=== PATIENT | female | born 1980 | race Caucasian/White ===

== ENCOUNTER 2025-01-07 06:30 | Outpatient (RCR) | payer MEDICARE, MEDICAID, SELFPAY | END 2025-02-06 23:59 | disposition home or self-care (01) | LOC: WPT 06:30 | PROVIDERS: Visit Provider Orthopaedic Surgery | DX: M54.12 Radiculopathy, cervical region (principal); M25.511 Pain in right shoulder | CPT/HCPCS: 97162 ==

== ENCOUNTER → 2025-02-20 10:45 | Outpatient (BNVA) | payer MEDICARE, MEDICAID, SELFPAY | PROVIDERS: Visit Provider Nurse Practitioner Family | DX: M54.42 Lumbago with sciatica, left side (principal); M54.41 Lumbago with sciatica, right side; G89.29 Other chronic pain; M54.2 Cervicalgia | CPT/HCPCS: 99214 ==

== ENCOUNTER → 2025-02-27 13:11 | Outpatient (BNVA) | payer MEDICARE, MEDICAID, SELFPAY | PROVIDERS: Visit Provider Nurse Practitioner Family | DX: M79.18 Myalgia, other site (principal); M54.42 Lumbago with sciatica, left side; M54.41 Lumbago with sciatica, right side; G89.29 Other chronic pain; M54.2 Cervicalgia | CPT/HCPCS: 20553; 99214; J1010; J3490 ==

== ENCOUNTER → 2025-03-13 10:52 | Outpatient (BNVA) | payer MEDICARE, MEDICAID, SELFPAY | PROVIDERS: Visit Provider Nurse Practitioner Family | DX: M54.42 Lumbago with sciatica, left side (principal); M54.41 Lumbago with sciatica, right side; G89.29 Other chronic pain; M54.2 Cervicalgia | CPT/HCPCS: 99213 ==

== ENCOUNTER → 2025-03-21 07:53 | Outpatient (BNVA) | payer MEDICARE, SELFPAY | PROVIDERS: Visit Provider Orthopaedic Surgery | DX: Z76.89 Persons encountering health services in other specified circumstances (principal); M54.9 Dorsalgia, unspecified; M54.42 Lumbago with sciatica, left side; M54.41 Lumbago with sciatica, right side; G89.29 Other chronic pain | CPT/HCPCS: 72110; 99203 ==

== ENCOUNTER 2025-03-29 10:45 | Outpatient (CLI) | payer MEDICARE, MEDICAID, SELFPAY ==
--- NOTE | 2025-03-29 11:45 | MR_ITS ---
WS: [id number] MRI LUMBAR SPINE NONCONTRAST HISTORY: Back Pain COMPARISON: Radiograph 03/21/2025 TECHNIQUE: Sagittal and axial multisequence imaging is submitted. L3 anterolisthesis by 3 mm. The remaining vertebral bodies are normally aligned. Advanced degenerative disc disease at L3-4, L4-5 and L5-S1. No acute marrow edema or fracture. Conus terminates normally at L1-2 disc level. L1-L2: Mild annular disc bulging and facet arthritis. Mild ligamentum flavum and facet arthritis. Mild bilateral foraminal stenosis. L2-L3: Mild annular disc bulging, ligamentum flavum and facet arthritis. Disc encroachment upon the subarticular recesses. Mild disc contact on the traversing L3 nerve roots and mild encroachment upon also the exiting L2 nerve roots. Mild central, subarticular recess and foraminal stenosis. L3-L4: Diffuse asymmetric disc bulging, marked ligamentum flavum and facet arthritis. Severe central, bilateral subarticular recess and foraminal stenosis. There is disc contact upon the L3 and L4 nerve roots. L4-L5: Diffuse annular disc bulge with a central asymmetric disc protrusion extending greatest into the LEFT subarticular recess. Mild ligamentum flavum and facet arthritis. Fluid in the facet joints. Mild central stenosis. More significant disc contact on the traversing L5 nerve roots, LEFT greater than RIGHT. Mild foraminal stenosis. L5-S1: Diffuse annular disc bulging with a RIGHT paracentral disc protrusion extending into the subarticular recess. There is an associated osteophyte also. There is disc contact on the RIGHT S1 nerve root. Mild bilateral foraminal stenosis. MR/MR lumbar spine wo con* [id number] IMPRESSION: 1. L3 anterolisthesis by 3 mm. Instability at the L3-4 level is likely. On the recent radiographs in the upright position there was significant anterolisthes is of L3 which is reduced during supine imaging. 2. L3-4: Severe central, bilateral subarticular recess and foraminal stenosis. Disc contacts the L3 and L4 nerve roots. 3. L4-5: Central asymmetric disc protrusion extends greatest into the LEFT sub articular recess. Mild disc contact on the traversing L5 nerve roots, LEFT grea ter than RIGHT. Mild central and foraminal stenosis. 4. L5-S1: RIGHT paracentral disc protrusion extending into the subarticular re cess contacts the S1 nerve root. Mild foraminal stenosis. 5. L2-3: Mild central, subarticular recess and foraminal stenosis. Mild disc c ontact on the traversing L3 nerve roots.
== END 2025-03-29 10:46 | disposition home or self-care (01) ==
LOC: RAD 10:48
PROVIDERS: Visit Provider Orthopaedic Surgery
DX: M48.061 Spinal stenosis, lumbar region without neurogenic claudication (principal); M51.26 Other intervertebral disc displacement, lumbar region; M51.27 Other intervertebral disc displacement, lumbosacral region; M48.07 Spinal stenosis, lumbosacral region; M51.369 Other intervertebral disc degeneration, lumbar region without mention of lumbar back pain or lower extremity pain; M47.896 Other spondylosis, lumbar region; M24.28 Disorder of ligament, vertebrae; M51.379 Other intervertebral disc degeneration, lumbosacral region without mention of lumbar back pain or lower extremity pain; M25.78 Osteophyte, vertebrae
CPT/HCPCS: 72148

== ENCOUNTER → 2025-04-04 10:21 | Outpatient (BNVA) | payer MEDICARE, MEDICAID, SELFPAY | PROVIDERS: Visit Provider Orthopaedic Surgery | DX: Z01.818 Encounter for other preprocedural examination (principal); Z09 Encounter for follow-up examination after completed treatment for conditions other than malignant neoplasm | CPT/HCPCS: 36415; 80053; 81001; 85025; 99214 ==

== ENCOUNTER → 2025-04-06 11:52 | Outpatient (BNVA) | payer MEDICARE, MEDICAID, SELFPAY | PROVIDERS: Visit Provider Internal Medicine | DX: E11.9 Type 2 diabetes mellitus without complications (principal); E03.9 Hypothyroidism, unspecified; E16.2 Hypoglycemia, unspecified; L65.9 Nonscarring hair loss, unspecified; E24.2 Drug-induced Cushing's syndrome; J45.909 Unspecified asthma, uncomplicated | CPT/HCPCS: 99204 ==

== ENCOUNTER → 2025-04-13 14:28 | Outpatient (BNVA) | payer MEDICARE, MEDICAID, SELFPAY | PROVIDERS: Visit Provider Nurse Practitioner Family | DX: M54.42 Lumbago with sciatica, left side (principal); M54.41 Lumbago with sciatica, right side; G89.29 Other chronic pain; M54.2 Cervicalgia | CPT/HCPCS: 99214 ==

== ENCOUNTER → 2025-05-01 09:57 | Outpatient (BNVA) | payer MEDICARE, SELFPAY | PROVIDERS: Visit Provider Nurse Practitioner Family | DX: M54.42 Lumbago with sciatica, left side (principal); M54.41 Lumbago with sciatica, right side; G89.29 Other chronic pain; M54.2 Cervicalgia; E11.9 Type 2 diabetes mellitus without complications; E16.2 Hypoglycemia, unspecified; E24.2 Drug-induced Cushing's syndrome | CPT/HCPCS: 99214 ==

== ENCOUNTER 2025-05-03 15:42 | Oncology outpatient (recurring) (ONCR) | payer OTHER, MEDICAID, SELFPAY | END 2025-05-08 23:59 | disposition home or self-care (01) | PROVIDERS: Visit Provider Internal Medicine | DX: D72.829 Elevated white blood cell count, unspecified (principal); D75.89 Other specified diseases of blood and blood-forming organs; R91.1 Solitary pulmonary nodule; J38.3 Other diseases of vocal cords; J45.998 Other asthma; Z79.899 Other long term (current) drug therapy; Z87.891 Personal history of nicotine dependence | CPT/HCPCS: 99205 ==

== ENCOUNTER 2025-05-06 10:37 | Emergency (ER) | payer OTHER, MEDICAID, SELFPAY ==
--- OUTSIDE RECORDS SUMMARY | 2023-11-16 06:30 | XMS_ITS ---
Author Organization [facility] Address [address] [place] [address] Care Team Providers Care Personal Development Educator Name Role Phone Maria Fernanda Diallo Primary Care Provider Nic Farshad Unavailable [phone] REASON FOR VISIT partial adjustment Social History Sex Assigned At : Social History Observation Description Sex Assigned At Female Encounters Encounter Location Date Provider Diagnosis [facility] [address] [place] [address] 11/16/2023 Farshad Lucero Plan Of Treatment No Information Progress Notes * Xenia CARRILLODOB:1980 ( 44 yo F)Acc No.[id number]:11/16/2023 Patient: Xenia Mendosa Provider: Brisa Lucero DDS :1980 A ge:42 Y S ex:Female Date:11/16/2023 Address:[address] [place] [address] [address] [place] [id number] Pcp:Maria Fernanda Diallo Subjective: * Chief Complaints: * P artial adjustment Billing Information: * Procedure Codes: * Electronic signature of Siobhan in Nic on 05/06/2025 at 10:48 AM CDT Sign off status: Pending * Provider: Brisa Lucero DDS Date: 11/16/2023 Generated for Printi ng/Faxing/eTransmitting on: 0 05/06/2025 10:48 AM CDT
--- OUTSIDE RECORDS SUMMARY | 2023-11-26 07:30 | XMS_ITS ---
Author Organization [facility] Address [address] [place] [address] Care Team Providers Care Travel Sales Consultant Name Role Phone Maria Fernanda Diallo Primary Care Provider Nic, Farshad Unavailable [phone] Social History Sex Assigned At : Social History Observation Description Sex Assigned At Female Encounters Encounter Location Date Provider Diagnosis [facility] [address] [place] [address] 11/26/2023 Farshad Lucero Plan Of Treatment No Information Progress Notes * Xenia ARREDONDODOB:1980 ( 44 yo F)Acc No.[id number]:11/26/2023 Patient: Xenia Mendosa Provider: Brisa Lucero DDS :1980 A ge:42 Y S ex:Female Date:11/26/2023 Address:[address] [place] [address] [id number] Pcp:Maria Fernanda Diallo * Electronic signature of Marw in Nic on 05/06/2025 at 10:48 AM CDT Sign off status: Pending * Provider: Brisa Lucero DDS Date: 0 11/26/2023 Generated for Liya corrales/Jose/eTransmitting on: 0 05/06/2025 10:48 AM CDT
--- OUTSIDE RECORDS SUMMARY | 2023-12-08 07:30 | XMS_ITS ---
Author Organization [facility] Address [address] [place] [address] Care Team Providers Care Arc Cutter Name Role Phone Maria Fernanda Diallo Primary Care Provider [phone] Nic, Josianeantonio Unavailable [phone] Social History Sex Assigned At : Social History Observation Description Sex Assigned At Female Encounters Encounter Location Date Provider Diagnosis [facility] [address] [place] [address] 12/08/2023 Farshad Lucero Plan Of Treatment No Information Progress Notes * Xenia ARREDONDODOB:1980 ( 44 yo F)Acc No.[id number]:12/08/2023 Patient: Xenia Mendosa Provider: Brisa Lucero DDS :1980 A ge:43 Y S ex:Female Date:12/08/2023 Address:[address] [place] [address] [id number] Pcp:Maria Fernanda Diallo Billing Information: * Procedure Codes: * Electronic signature of Siobhan in Nic on 05/06/2025 at 10:47 AM CDT Sign off status: Pending * Provider: Brisa Lucero DDS Date: 12/08/2023 Generated for Printi ng/Faxing/eTransmitting on: 0 05/06/2025 10:47 AM CDT
--- OUTSIDE RECORDS SUMMARY | 2024-12-08 10:05 | XMS_ITS | Continuity of Care Document ---
Author Organization [facility] Address [address] [address] [place] [address] Phone Care Team Providers Care Noodle Catalyst Maker Name Role Phone Reeg INFORMATION SYSTEMS ANALYST-C, Meaghan Unavailable Unavailable Allergies, Adverse Reactions, Alerts Substance Reaction Status Criticality cinnamon Active No Information linezolid Active No Information DEXTROSE 5 % IN WATER Active No Inf ormation meropenem Active No Information PENICILLIN Active No Information Medications Medication Instructions Dosage Effective Dates (start - stop) Status Comments oxycodone-acetaminophen 5 mg-325 mg tablet take 1 tablet by oral route every 6 hours as needed 1.00 tablet - Active pregabalin 100 mg capsule take 1 capsule by oral route 3 times every day 100 MG - Active atorvastatin 10 mg tablet take 1 tablet by oral route every day 10 MG - Active Qvar RediHaler 80 mcg/actuation HFA breath activated aerosol inhale 2 puff by inhalation route 2 times every day 160 MCG - Active Mounjaro 15 mg/0.5 mL subcutaneous pen injector inject (15MG) by subcutaneous route every week 15 MG - Active Breztri Aerosphere 160 mcg-9mcg-4.8mcg/actuation HFA aerosol inhaler inhale 2 puff by inhalation route 2 times every day in the morning and evening 2.00 puff - Active aripiprazole 5 mg tablet take 1 tablet b y oral route every day 5 MG - Active Zyflo 600 mg tablet take 1 tablet by oral route 4 times every day 600 MG - Active topiramate 50 mg tablet take 1 tablet by oral route 2 times every day 50 MG - Active esomeprazole magnesium DR 40 mg granules delayed release for susp take 1 packet by oral route 2 times every day mixed with 15 ml water, let sit 2-3 minutes, stir and drink within 30minutes 40 MG - Active ferrous sulfate 325 mg (65 mg iron) tablet,delayed release - Active losartan 100 mg tablet take 1 tablet by oral route every day 100 MG - Active albuterol sulfate HFA 90 mcg/actuation aerosol inhaler inhale 2 puff by inhalation route every 4 - 6 hours as needed 180 MCG - Active Mounjaro 15 mg/0.5 mL subcutaneous pen injector inject (15MG) by subcutaneous route every week 15 MG - Active clindamycin HCl 300 mg capsule take 1 capsule by oral route every 6 hours 300 MG - Active ketorolac 10 mg tablet take 1 tablet by oral route every 8 hours as needed for up to 5 days total use 10 MG - Active tamsulosin 0.4 mg capsule take 1 capsule by oral route every day 1/2 hour following the same meal each day 0.4 MG - Active levofloxacin 750 mg tablet take 1 tablet by oral route every day 750 MG - Active amlodipine 5 mg tablet take 1 tablet by oral route every day 5 MG - Active citalopram 20 mg tablet take 1 tablet by oral route every day 20 MG - Active aripiprazole 5 mg tablet take 1 tablet b y oral route every day 5 MG - Active methocarbamol 750 mg tablet take 1 tablet by oral route 3 times every day 750 MG - Active oxybutynin chloride ER 10 mg tablet,extended release 24 hr take 1 tablet by oral route every day 10 MG - Active fluconazole 150 mg tablet take 1 tablet by oral route once 150 MG - Active venlafaxine 75 mg tablet take 1 tablet b y oral route 2 times every day with food 75 MG - Active prednisone 10 mg tablet take 1 tablet by oral route every day 10 MG - Active nortriptyline 75 mg capsule take 1 capsule by oral route every day 75 MG - Active levocetirizine 5 mg tablet take 1 tablet by oral route every day in the evening 5 MG - Active meloxicam 15 mg tablet take 1 tablet by oral route every day 15 MG - Active oxybutynin chloride ER 10 mg tablet,extended release 24 hr take 1 tablet by oral route every day 10 MG - Active hydrochlorothiazide 25 mg tablet take 1 tablet by oral route every day 25 MG - Active cetirizine 10 mg tablet take 1 tablet by oral route every day 10 MG - Active Procedures Procedure Date OFFICE/OUTPATIENT VISIT EST OFFICE/OUTPATIENT VISIT EST RADEX FOOT COMPL MINIMUM 3 VIEWS 2023 OFFICE/OUTPATIENT VISIT NEW RADEX FRIEDA COMPL MINIMUM 2 VIEWS 024 Betamethasone acet&sod phosp Ropivacaine HCl injection DRAIN/INJECT JOINT/BURSA OFFICE/OUTPATIENT VISIT NEW Advance Directives Directive Yes / No Effective Date File Name Resuscitation Not Answered N/A N/A Life Support Not Answered N/A N/A Intubation Not Answered N/A N/A Antibiotics Not Answered N/A N/A IV Fluid Support Not Answered N/A N/A Tube Feed Not Answered N/A N/A Other Directive N/A N/A WARNING:The information contained in this section is historical and is provided for information only and does not constitute a legal document or any assurance that the information is still accurate. Please verify the information with the donohue of the legal document before using it for clinical purposes. Encounters Encounter Description Practice Location Reason(s) For Visit Diagnoses Date Provider Providers Copied on Encounter OFFICE/OUTPA TIENT VISIT EST [facility], [address] [facility] [address], [place], [address], [place] tel:[phone] [facility] Neuritis 5 Elio Harding. [address], [place], [place], [id number] . tel: [phone] OFFICE/OUTPA TIENT VISIT EST [facility], [address] [facility] [address], [place], [address], [place] tel:[phone] [facility] Right cervical radiculopathyRigh t shoulder pain, unspecified chronicity 5 Yue Waldron. [address], [place], [address], [place]. tel: [phone] OFFICE/OUTPA TIENT VISIT NEW [facility], [address], [place], [address], [place] tel:[phone] [facility] Left foot painNeuritis 4 Moy Woodard. [address], [place], [place], [id number] . tel: [phone] OFFICE/OUTPA TIENT VISIT NEW [facility], [address], [place], [address], [place] tel:[phone] [facility] Right shoulder pain, unspecified chronicityAdhesiv e capsulitis of right shoulder 4 To Chery. [address], [place], [place], [id number] , [place]. tel: [phone] Family History Family Member Type Diagnosis Age At Onset No Information Payers Payer name Insurance type Covered democrat ID William zuleta(s) [facility] Dual Complete HMO-SNP OT [id number] [facility] Medicaid E2 [id number] Social History Type Description Quantity Date Captured Comments Alcohol Use Details Unknown Caffeine Use Details Unknown Tobacco Use Status Current non-smoker Smoking Status Never smoker Sex Female Chief Complaint And Reason For Visit No Information Reason For Referral Reason For Referral No Information Plan Of Treatment Date Type Action Status Referral Ordered: RADEX FRIEDA COMPL MINIMUM 2 VIEWS RT shoulder ordered Referral Ordered: RADEX FOOT COMPL MINIMUM 3 VIEWS LT ordered History Of Present Illness Encounter Date Complaint History Of Prese nt Illness No Information Functional Status Date Functional Assessmen t No Information Instructions Date Instruction Additional Infor mation No Information Assessments Type Assessment Date assessment Neuritis Patient Care Teams Name Effective Dates (start - stop) Status Members No Information
[2025-05-06 10:38] VITALS: BP 109/70; PULSE 84; RESP 18; TEMP 36.8; O2SAT 98; BMI 55.5
[2025-05-06 10:44] VITALS: PULSE 65; O2SAT 98
--- OUTSIDE RECORDS SUMMARY | 2025-05-06 10:48 | XMS_ITS ---
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 Past Treatment and Therapy Plans No past plan information found. Lifetime Dose Tracking * Chemical Lifetime Dose Automatic Entry Manual Entr y Effective Dose 3.3 mSv 3.3 mSv 0 mSv Total DLP 1,584.4 DLP 1,584.4 DLP 0 DLP CTDIvol Max 78.9 mGy 78.9 mGy 0 mGy CTDIvol Min 51 mGy 51 mGy 0 mGy Resolved Problems Problem Noted Date Diagnosed Date Resolved Date DM (diabetes mellitus), type 2 06/02/2012 12/29/2024
--- OUTSIDE RECORDS SUMMARY | 2025-05-06 10:48 | XMS_ITS | Clinical Summary ---
Author Organization [facility] Address [address] [place] [address] Care Team Providers Care At Risk Specialist Name Role Phone OmerNathenEmmanuelliz Quintanilla DO Primary Care Provider Allergies Active Allergy Reactions Criticality Noted Date Comments Penicillins Hives High 06/02/2012 Medications metFORMIN (GLUCOPHAGE) 500 mg Oral tablet Take 500 mg by mouth daily. Active oxyCODONE-aceta minophen (PERCOCET) 5-325 mg Oral tablet Take 1 Tab by mouth every 6 hours as needed. Active lisinopril-hydr ochlorothiazide (ZESTORETIC) 10-12.5 mg Oral tablet Take 1 Tab by mouth daily. Active albuterol (VENTOLIN HFA) 90 mcg/Actuation Inhalation HFAA Take 1 Puff by inhalation one time only. Active ipratropium (ATROVENT HFA) 17 mcg/Actuation Inhalation HFAA Take 2 Puffs by inhalation every 6 hours. Active methylPREDNISol one (MEDROL DOSPACK) 4 mg Oral DsPkIndications :Sacroiliitis Take as directed 1 Package 0 2 Active cyclobenzaprine (FLEXERIL) 10 mg Oral tabletIndicatio ns:Sacroiliitis Take 1 Tab by mouth 3 times daily as needed for Spasm. 30 Tab 1 2 Active Active Problems Problem Noted Date Diagnosed Date Asthma 06/02/2012 HTN (hypertension) 06/02/2012 Type II or unspecified type diabetes mellitus without mention of complication, not stated as uncontrolled 06/02/2012 Morbid obesity 06/02/2012 Social History Tobacco Use Types Packs/Day Years Used Date Smoking Tobacco: Never Smokeless Tobacco: Never Tobacco Cessation:Counseling Given: No Alcohol Use Standard Drinks/Week Comments Yes 0 (1 standard drink = 0.6 oz pur e alcohol) Comments Unknown Sex and Gender Information Value Date Recorded Sex Assigned at Not on file Legal Sex Female 4:17 AM MACHINE STUFFER Gender Identity Not on file Sexual Orientation Not on file Last Filed Vital Signs Vital Sign Reading Time Taken Comments Blood Pressure 178/94 06/02/2012 3:26 PM CDT Pulse 68 06/02/2012 3:26 PM CDT Temperature 36.4 C (97.6 F) 06/02/2012 3:26 PM CDT Respiratory Rate 20 06/02/2012 3:26 PM CDT Oxygen Saturation - - Inhaled Oxygen Concentration - - Weight 190.5 kg (420 lb) 06/02/2012 3:26 PM CDT Height 177.8 cm (5' 10 ) 06/02/2012 3:26 PM CDT Body Mass Index 60.26 06/02/2012 3:26 PM CDT Plan of Treatment Health Maintenance Due Date Last Done Comments DIABETES ANNUAL FOOT EXAM 1997 DIABETES ANNUAL RETINAL EXAM 1997 DIABETES HBA1C Q 6 MONTHS 1997 DIABETES MICROALBUMIN ANNUAL SCREEN 1997 LDL CHOLESTEROL ANNUAL 1997 DTAP/TDAP/TD VACCINES (1 - Tdap) 1998 HEPATITIS B VACCINES (1 of 3 - 19+ 3-dose series) 1998 HPV/Cotest (21-29) 2000 CERVICAL CANCER SCREENING 2009 HPV/Cotest (30-65) 2009 PAP SMEAR 2009 BREAST CANCER SCREENING 2019 INFLUENZA VACCINE (#1) 2024 COLORECTAL SCREENING 2024 Colorectal Cancer Screening 2024 FIT-DNA Q 3 years 2024 FIT/FOBT Q 1 year 2024 Flex Sig/CT Colonography Q 5 years 2024 HPV VACCINES Aged Out No longer eligi ble based on patient's age to complete this topic Insurance [address] [id number] [facility] Care Teams At Risk Specialist Relationship Specialty Start Date End Date Emmanuel Tello DO PCP - General Family Practice 06/02/12
--- OUTSIDE RECORDS SUMMARY | 2025-05-06 10:48 | XMS_ITS | Encounter Summary ---
Author Organization [facility] Address [address] [place] [address] Care Team Providers Care Press Hand Supervisor Name Role Phone Emmanuel Tello DO Primary Care Provider [phone] Encounter Details Date Type Department Care Team (Latest Contact Info) Description 01/23/2004 Outpatient Historical [facility] HEAD BUCKER, Family Medicine and Maternal- Medicine 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
--- OUTSIDE RECORDS SUMMARY | 2025-05-06 10:48 | XMS_ITS | Encounter Summary ---
Author Organization [facility] Address [address] [place] [address] Care Team Providers Care Topline Beading Machine Tender Name Role Phone Unavailable Primary Care Provider Unavailabl e Encounter Details Date Type Department Care Team (Late st Contact Info) Description 05/01/2025 Orders Only [facility] Medicine [place] [address] [address] Selene Arredondo, [facility] [address] [place] [address] [address] [place] [address] Bhumi infection (Primary Dx) Social History Tobacco Use Types Packs/Day Years Used Date Smoking Tobacco: Never Smokeless Tobacco: Never Alcohol Use Standard Drinks/Week Comments Never 0 (1 standard drink = 0.6 oz pur e alcohol) Feeling Safe Answer Date Recorded Are you in a relationship wi th someone who hurts you emotionally and/or physically? No 03/14/2025 Comments No Sex and Gender Information Value Date Recorded Sex Assigned at Not on file Legal Sex Female 12:58 AM FULFILLMENT REPRESENTATIVE Gender Identity Not on file Sexual Orientation Not on file documented as of this encounter Plan of Treatment Not on file documented as of this encounter Visit Diagnoses Diagnosis Bhumi infection- Primary Candidiasis of unspecified site documented in this encounter Additional Health Concerns Assessment Noted Time PHQ-9 Depression Total Score: 5 12/29/19 25 2:26 PM FULFILLMENT REPRESENTATIVE documented as of this encounter
--- OUTSIDE RECORDS SUMMARY | 2025-05-06 10:48 | XMS_ITS | Encounter Summary ---
Author Organization [facility] Address [address] [place] [address] Care Team Providers Care Preparation Center Coordinator Name Role Phone Unavailable Primary Care Provider Unavailabl e Encounter Details Date Type Department Care Team (Late st Contact Info) Description 03/09/2025 Lab Requisition [facility] Services [place] [address] [place] [address] Adriana Hogan, STOGIE PACKER [address] [facility] [place] [id number] Hypokalemia Social History Tobacco Use Types Packs/Day Years Used Date Smoking Tobacco: Never Smokeless Tobacco: Never Alcohol Use Standard Drinks/Week Comments Never 0 (1 standard drink = 0.6 oz pur e alcohol) Feeling Safe Answer Date Recorded Are you in a relationship wi th someone who hurts you emotionally and/or physically? No 01/12/2025 Comments No Sex and Gender Information Value Date Recorded Sex Assigned at Not on file Legal Sex Female 12:58 AM SUPERVISOR GROVE Gender Identity Not on file Sexual Orientation Not on file documented as of this encounter Plan of Treatment Not on file documented as of this encounter Procedures Procedure Name Priority Date/Time Associated Diagnosis Comments POTASSIUM LEVEL Stat 03/09/2025 3:05 PM CDT Hypokalemia documented in this encounter Results * POTASSIUM LEVEL (03/09/2025 3:05 PM CDT) POTASSIUM 3.6 3.5 - 5.1 mmol/L 03/09/2025 3:18 PM CDT [facility] Blood BLOOD SPECIMEN / Unknown Collection / Unknown 03/09/2025 3:05 PM CDT 03/09/2025 3:08 PM CDT Adriana Hogan STOGIE PACKER CHEMISTRY ORDERABLES Veronika nixon Result [facility] CLIA # [id number] [address] [place] [address] documented in this encounter Visit Diagnoses Diagnosis Hypokalemia Hypopotassemia documented in this encounter Additional Health Concerns Assessment Noted Time PHQ-9 Depression Total Score: 5 12/29/19 25 2:26 PM SUPERVISOR GROVE documented as of this encounter
--- OUTSIDE RECORDS SUMMARY | 2025-05-06 10:48 | XMS_ITS | Clinical Summary ---
Author Organization [facility] Medical Office [facility] Address [address] [place] [address] Care Team Providers Care Scaffolding Helper Name Role Phone Unavailable Primary Care Provider Unavailabl e Allergies Active Allergy Reactions Criticality Noted Date Comments Cinnamon Anaphylaxis High 01/24/2022 Linezolid Rash Low 01/24/2022 Meropenem Swelling Low 01/24/2022 Mold Shortness of Breath/Wheezing High 07/25/2020 Penicillins Hives High 06/02/2012 Vancomycin Rash Low 01/28/2022 Reportedly, rash did not improve with slowing down IV infusion rate. Medications beclomethasone dipropionate (Qvar RediHaler) 80 mcg/actuation HFA Aerosol Breath Activated Take 2 Puffs by inhalation 2 times daily. Active albuterol sulfate 90 mcg/Actuation inhaler Take 2 Puffs by inhalation every 6 hours as needed for Shortness of Breath. Active budesonide-glyco pyr-formoterol (Breztri Aerosphere) 160-9-4.8 mcg/actuation HFA Aerosol Inhaler Take 2 Puffs by inhalation 2 times daily. Active sulfamethoxazole -trimethoprim (BACTRIM DS) 800-160 mg tablet Take 1 Tablet by mouth every Thursday, Thursday, and Thursday. Active citalopram (CeleXA) 40 mg tablet Take 40 mg by mouth daily. Active losartan (COZAAR) 100 mg tablet Take 100 mg by mouth daily. Active levocetirizine (XYZAL) 5 mg tablet Take 5 mg by mouth daily. Active zileuton (ZYFLO CR) 600 mg Controlled Release 24 hour tablet Take 1,200 mg by mouth 2 times daily. Active OXYGEN-AIR DELIVERY SYSTEMS MISC 3 L by Other route daily at bedtime. Active ARIPiprazole (ABILIFY) 5 mg tablet Take 5 mg by mouth daily. Active calcium as CARBONATE (OS-ALYSA) 1,250 mg (500 mg elemental) tablet Take 1 Tablet by mouth daily. Active meloxicam (MOBIC) 15 mg tablet Take 15 mg by mouth daily. 10/10/20 24 Active multivitamin (DAILY-LEXII) tablet Take 1 Tablet by mouth daily. Active ondansetron (ZOFRAN ODT) 4 mg Tablet, Rapid Dissolve Take 4 mg by mouth every 6 hours as needed. 06/20/20 22 Active pregabalin (LYRICA) 100 mg Capsule Take 100 mg by mouth 2 times daily. Active topiramate (TOPAMAX) 50 mg tablet Take 50 mg by mouth 2 times daily. Active zinc sulfate 50 mg zinc (220 mg) capsule Take 220 mg by mouth daily. Active ipratropium-albu teroL (DUONEB) 0.5 mg-3 mg(2.5 mg base)/3 mL Solution for Nebulization Take 3 mL by inhalation every 8 hours as needed for Respiration, Shortness of Breath or Wheezing. Active EPINEPHrine (EPIPEN) 0.3 mg/0.3 mL Auto-Injector Inject 0.3 mL (0.3 mg) by intramuscular injection see administration instructions. 2 Each 2 12/30/19 25 Active tirzepatide (Mounjaro) 15 mg/0.5 mL Pen Injector Inject 0.5 mL (15 mg) by subcutaneous injection every 7 days. 0.5 mL 3 12/30/19 25 Active ferrous sulfate 325 mg (65 mg iron) tablet Take 1 Tablet (325 mg) by mouth daily. 90 Tablet 2 02/04/20 25 Active esomeprazole (NexIUM) 40 mg Capsule, Delayed Release(E.C.) Take 1 Capsule (40 mg) by mouth daily before breakfast. 30 Capsule 5 02/04/20 25 Active Airsupra 90-80 mcg/actuation HFA Aerosol Inhaler Take 2 Puffs by inhalation every 6 hours as needed for Other (See Comment). 01/25/20 25 Active furosemide (LASIX) 40 mg tablet Take 40 mg by mouth daily. 01/26/20 25 026 Active tezepelumab-ekko (Tezspire) 210 mg/1.91 mL (110 mg/mL) subcutaneous pen injector Inject 210 mg by subcutaneous injection every 30 days. 02/15/20 25 Active atorvastatin (LIPITOR) 10 mg tablet Take 20 mg by mouth daily at bedtime. 01/26/20 25 Active oxyBUTYnin (DITROPAN XL) 10 mg Extended Release 24 hour tabletIndication s:Incontinence of feces, unspecified fecal incontinence type Take 1 Tablet (10 mg) by mouth daily. 30 Tablet 5 02/16/20 25 Active cyclobenzaprine (FLEXERIL) 10 mg tabletIndication s:Muscle spasm Take 1 Tablet (10 mg) by mouth 3 times daily as needed for Spasm. 90 Tablet 5 02/16/20 25 Active nortriptyline (PAMELOR) 75 mg capsule Take 2 Capsules (150 mg) by mouth daily at bedtime. 60 Capsule 5 03/02/20 25 Active wheelchairIndica tions:Impaired mobility Wheelchair type: manual Face to Face completed within 6 months: yes Date face to face process complete: (If standard manual chair, this is not needed.) Length of Need: 60 months Weight: (!) 170.4 kg (375 lb 11.2 oz) (02/15/25 1044) If over 250 lbs, patient requires heavy duty. General use cushion: No standard foot rests. 1 Each 03/01/20 25 Active venlafaxine (EFFEXOR) 75 mg tablet Take 3 Tablets (225 mg) by mouth daily. 90 Tablet 2 03/13/20 25 Active predniSONE (DELTASONE) 20 mg tablet Take 30 mg by mouth daily. Active empagliflozin (Jardiance) 10 mg tabletIndication s:Type 2 diabetes mellitus without complication, without long-term current use of insulin (CMS/HCC) Take 1 Tablet (10 mg) by mouth daily in the morning. 100 Tablet 3 03/22/20 25 Active Blood-Glucose Sensor (FreeStyle Janessa 3 Plus Sensor) DeviceIndication s:Type 2 diabetes mellitus without complication, without long-term current use of insulin (CMS/HCC) Use to monitor glucose continuously. Replace sensor every 15 days. 6 Each 03/22/20 25 Active phentermine (ADIPEX P) 37.5 mg tabletIndication s:Morbid obesity (CMS/HCC) Take 1 tablet by mouth daily. 30 Tablet 1 04/20/20 Active fluconazole (DIFLUCAN) 150 mg tabletIndication s:Bhumi infection Take 1 Tablet (150 mg) by mouth daily for 2 days. 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 025 Abdominal wall cellulitis 01/24/2022 Asthma 06/02/2012 HTN (hypertension) 06/02/2012 Morbid obesity 06/02/2012 Malignant neoplasm of lung Severe sepsis without septic shock Resolved Problems Problem Noted Date Diagnosed Date Resolved Date DM (diabetes mellitus), type 2 06/02/2012 12/29/2024 Encounters Date Type Department Care Team Description 05/01/2025 Orders Only [address] [place] [address] Selene Arredondo FNP Bhumi infection (Primary Dx) 04/20/2025 Refill [facility] [address] [place] [address] Selene Arredondo, JERRY Morbid obesity (CMS/HCC) (Primary Dx) 04/11/2025 External Device Data STL ABSTRACTION Provider, Abstract 04/10/2025 Abstract [facility] [address] [place] [phone] Selene Arredondo FNP 04/04/2025 Orders Only [facility] [address] [place] [address] Selene Arredondo FNP Leukocytosis, unspecified type (Primary Dx); Chronic anemia 04/03/2025 Results Follow-Up [facility] [address] [place] [address] Selene Arredondo FNP COMPREHENSIVE METABOLIC PANEL, CBC WITH DIFFERENTIAL 03/29/2025 9:28 AM CDT - 03/29/2025 11:59 PM CDT Hospital Encounter [facility] Outpatient [facility] [place] [address] [place] [phone] Selene Arredondo FNP Discharge Disposition: Home or Self Care 03/28/2025 Telephone [facility] [address] [place] [phone] Selene Arredondo FNP Provider Call 03/27/2025 Telephone [facility] [address] [place] [phone] Selene Arredondo FNP Provider Call 03/25/[address] [phone] Paulette Brown RN [facility] Compensation Consultant 03/22/2025 11:40 AM CDT Video Visit [facility] [address] [phone] Selene Arredondo FNP Hypokalemia (Primary Dx); Type 2 diabetes mellitus without complication, without long-term current use of insulin ([facility]); Other fatigue 03/21/2025 External Device Data STL ABSTRACTION Provider, Abstract 03/20/2025 Telephone [facility] [address] [phone] Selene Arredondo FNP Question 03/15/2025 Telephone [facility] [address] [place] [address] [address] [place] [phone] Selene Arredondo FNP Wants Appointment 03/14/2025 4:10 PM CDT - 03/14/2025 6:[address] [facility] Emergency Medicine [address] [place] [phone] Roxanna Leblanc MD Hypokalemia (Primary Dx); Iatrogenic cushingoid features Discharge Disposition: Home or Self Care 03/14/2025 Travel 03/09/2025 2:10 PM CDT - 03/09/2025 11:59 PM CDT Hospital Encounter [facility] [place] [address] [place] [address] Adriana Hogan, COOKIE MIXER HELPER Hypokalemia Discharge Disposition: Home or Self Care 03/09/2025 Lab Requisition [facility] General Laboratory [facility] [place] [address] [place] [phone] Adriana Hogan, COOKIE MIXER HELPER Hypokalemia 03/07/2025 External Device Data STL ABSTRACTION Provider, Abstract 03/01/2025 Orders Only [facility] Medicine [place] [address] [facility] [address] [place] [address] Anny Benson Impaired mobility 03/01/2025 Telephone [facility] [place] [address] [facility] [address] [place] [address] Selene Arredondo, JERRY Durable Medical Equipment 02/28/2025 Telephone [facility] Medicine [place] [address] [place] [address] Selene Arredondo FNP Provider Call 02/28/2025 Telephone [facility] [place] [address] [place] [address] Selene Arredondo FNP Provider Call 02/28/2025 Refill [facility] Medicine [place] [address] [place] [address] Selene Arredondo FNP 02/23/2025 Abstract [facility] Medicine [place] [address] [facility] [address] [place] [address] Selene Arredondo FNP 02/23/2025 Abstract [facility] Medicine [place] [address] [place] [address] Selene Arredondo, JERRY 02/21/2025 Results Follow-Up [facility] [address] [place] [address] [address] [place] [address] Selene Arredondo, COOKIE MIXER HELPER HEMOGLOBIN A1C, COLON CANCER SCREEN, STOOL DNA 02/20/2025 9:25 AM CDT - 02/20/2025 11:59 PM CDT Hospital Encounter [facility] [place] [address] [place] [phone] Xenia Arredondo, COOKIE MIXER HELPER Selene Arredondo, JERRY Discharge Disposition: Home or Self Care 02/17/[address] [place] [phone] Selene Arredondo, JERRY 02/17/[address] [phone] Selene Arredondo, JERRY Dizziness 02/17/[address] [phone] Selene Arredondo, COOKIE MIXER HELPER 02/16/[address] [phone] Selene Arredondo, JERRY 02/15/2025 11:00 AM CDT Office Visit [address] [place] [phone] Selene Arredondo, JERRY Encounter for colorectal cancer screening (Primary Dx); 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 (CMS/HCC); Incontinence of feces, unspecified fecal incontinence type; Muscle spasm; Mucoid otitis media of both ears, unspecified chronicity; Impaired mobility; Lumbar radiculopathy; Cervical radiculopathy 02/15/[address] [place] [phone] Selene Arredondo FNP Provider Call; Provider Call 02/07/2025 External Device Data STL ABSTRACTION Provider, Abstract from Last 3 Months Family History Medical History Relation Name Comments Diabetes Father Hypertension Father Hypertension Mother Relation Name Status Comments Father Alive Mother Alive Social History Tobacco Use Types Packs/Day Years [...] on file 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 Gender Identity Not on file Sexual Orientation Not on file Last Filed Vital Signs Vital Sign Reading Time Taken Comments Blood Pressure 97/63 03/14/2025 6:15 PM CDT Pulse 68 03/14/2025 6:15 PM CDT Temperature 36.8 C (98.2 F) 03/14/2025 4:18 PM CDT Respiratory Rate 17 03/14/2025 6:15 PM CDT Oxygen Saturation 97% 03/14/2025 6:15 PM CDT Inhaled Oxygen Concentration - - Weight 170.8 kg (376 lb 9.6 oz) 03/14/2025 4:18 PM CDT Height 175.3 cm (5' 9 ) 03/14/2025 4:18 PM CDT Body Mass Index 55.61 03/14/2025 4:18 PM CDT Plan of Treatment Health Maintenance Due Date Last Done Comments DIABETES ANNUAL FOOT EXAM 1997 DIABETES ANNUAL RETINAL EXAM 1997 DIABETES MICROALBUMIN ANNUAL SCREEN 1997 LDL CHOLESTEROL ANNUAL 1997 DTAP/TDAP/TD VACCINES (1 - Tdap) 1998 HEPATITIS B VACCINES (1 of 3 - 19+ 3-dose series) 1998 03/15/2008, 09/03/2007, 07/26/2007 HPV/Cotest (21-29) 2000 HPV/Cotest (30-65) 2009 CERVICAL CANCER SCREENING 03/18/2024 PAP SMEAR 03/18/2024 03/18/2021 COLORECTAL SCREENING 2024 FIT/FOBT Q 1 year 2024 Flex Sig/CT Colonography Q 5 years 2024 BREAST CANCER SCREENING 06/10/2025 06/10/20 24, 06/10/2024, 06/04/2022, Additional history exists DIABETES HBA1C Q 6 MONTHS 08/22/20252024, 01/25/2022, 12/06/2021, Additional history exists Colorectal Cancer Screening 03/07/2028 FIT-DNA Q 3 years 03/07/2028 03/07/2025 INFLUENZA VACCINE Completed 12/29/2024, , 07/17/2018, Additional history exists HPV VACCINES Aged Out No longer eligi ble based on patient's age to complete this topic Medical Devices Implanted Type Area Fast Food Team Member Device Identifier Shelf Expiration Date Model / Serial / Lot Cataract Procedures Procedure Name Priority Date/Time Associated Diagnosis Comments CBC WITH DIFFERENTIAL Routine 03/29/2025 9:48 AM CDT Type 2 diabetes mellitus without complication, without long-term current use of insulin ([facility]) COMPREHENSIVE METABOLIC PANEL Routine 03/29/2025 9:48 AM CDT Hypokalemia Type 2 diabetes mellitus without complication, without long-term current use of insulin ([facility]) REFERENCE LAB PROCESSING FEE Routine 03/29/2025 9:[address] HEAD WO CONTRAST Stat 03/14/2025 5 :19 PM CDT URINALYSIS MICROSCOPY ONLY Stat 03/14/2025 5:07 PM CDT URINALYSIS W/REFLEX MICROSCOPIC Stat 03/14/2025 5:07 PM CDT PTT Stat 03/14/2025 4:41 PM CDT PROTIME-INR Stat 03/14/2025 4:41 PM CDT BRAIN NATRIURETIC PEPTIDE, BNP OR PROBNP Stat 03/14/2025 4:41 PM CDT DIFFERENTIAL, MANUAL Stat 03/14/2025 4:41 PM CDT MAGNESIUM LEVEL Stat 03/14/2025 4:41 PM CDT SEDIMENTATION RATE Stat 03/14/2025 4: 41 PM CDT COMPREHENSIVE METABOLIC PANEL Stat 03/14/2025 4:41 PM CDT CBC WITH DIFFERENTIAL Stat 03/14/2025 4:41 PM CDT POTASSIUM LEVEL Stat 03/09/2025 3:05 PM CDT Hypokalemia COLON CANCER SCREEN, STOOL DNA Routine 03/07/2025 5:30 PM CDT Encounter for colorectal cancer screening HEMOGLOBIN A1C Routine 02/20/2025 9:35 AM CDT 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 REFERENCE LAB SENDOUT Sent to Ref Lab 03/29/2025 12:00 PM CDT [facility] Other, specify BLOOD SPECIMEN / Unknown Collection / Unknown 03/29/2025 9:48 AM CDT 03/29/2025 10:43 AM CDT us Selene Arredondo COOKIE MIXER HELPER CHEMISTRY ORDERABLES Fin al Result [facility] CLIA # [id number] [address] [place] [address] * (ABNORMAL) CBC WITH DIFFERENTIAL (03/29/2025 9:48 AM CDT) Only the most recent of2 resultswithin the time period is included. WBC 12.7(H) 3.8 - 10.8 Thousand/u L [facility] RBC 3.67(L) 3.80 - 5.10 Million/uL [facility] HEMOGLOBIN 12.4 11.7 - 15.5 g/dL [facility] HEMATOCRIT 38.1 35.0 - 45.0 % [facility] MCV 103.8(H) 80.0 - 100.0 fL [facility] MCH 33.8(H) 27.0 - 33.0 pg [facility] MCHC 32.5 32.0 - 36.0 g/dL [facility] Comment: For adults, a slight decrease in the calculated MCHC value (in the range of 30 to 32 g/dL) is most likely not clinically significant; however, it should be interpreted with caution in correlation with other red cell parameters and the patient's clinical condition. RDW 15.8(H) 11.0 - 15.0 % [facility] PLATELETS 156 140 - 400 Thousand/u L [facility] MPV 10.2 7.5 - 12.5 fL [facility] NEUTROPHIL ABSOLUTE 9,779(H) 1,500 - 7,800 cells/uL [facility] BANDS ABSOLUTE 127 0 - 750 cells/uL [facility] LYMPHOCYTES ABSOLUTE 2,286 850 - 3,900 cells/uL [facility] MONOCYTE ABSOLUTE 508 200 - 950 cells/uL [facility] EOSINOPHIL ABSOLUTE 0(L) 15 - 500 cells/uL [facility] BASOPHILS ABSOLUTE 0 0 - 200 cells/uL [facility] NEUTROPHIL 77 % [facility] BANDS 1 % [facility] LYMPHOCYTES 18 % [facility] MONOCYTE 4 % [facility] EOSINOPHILS 0 % [facility] BASOPHILS 0 % [facility] COMMENT HEMATOLOGY [facility] Comment: Although an automated CBC was ordered, our instrumentation detected an abnormality on your patient's specimen requiring us to perform a manual review. Test Performed at: [facility] [address] [place] [address] Sy Mckeon MD Blood 03/29/2025 9:48 AM CDT 03/30/2025 4:01 AM CDT us Selene Arredondo COOKIE MIXER HELPER HEMATOLOGY ORDERABLES Fi nal Result [facility] [phone] [facility] [address] [place] [address] * (ABNORMAL) COMPREHENSIVE METABOLIC PANEL (03/29/2025 9:48 AM CDT) Only the most recent of2 resultswithin the time period is included. GLUCOSE 64(L) 65 - 99 mg/dL [facility] Comment: Fasting reference interval BUN 24 7 - 25 mg/dL [facility] CREATININE 0.95 0.50 - 0.99 mg/dL [facility] GFR 75 > OR = 60 mL/min/1. 73m2 [facility] BUN/CREAT RATIO SEE NOTE: 6 - 22 (calc) [facility] Comment: Not Reported: BUN and Creatinine are within reference range. SODIUM 139 135 - 146 mmol/L [facility] POTASSIUM 4.3 3.5 - 5.3 mmol/L [facility] CHLORIDE 108 98 - 110 mmol/L [facility] CO2 20 20 - 32 mmol/L [facility] CALCIUM 8.5(L) 8.6 - 10.2 mg/dL [facility] TOTAL PROTEIN 5.6(L) 6.1 - 8.1 g/dL [facility] ALBUMIN 3.6 3.6 - 5.1 g/dL [facility] GLOBULIN 2.0 1.9 - 3.7 g/dL (calc) [facility] ALBUMIN/GLOBULIN RATIO 1.8 1.0 - 2.5 (calc) [facility] BILIRUBIN TOTAL 0.4 0.2 - 1.2 mg/dL [facility] ALKALINE PHOSPHATASE 58 31 - 125 U/L [facility] AST 15 10 - 35 U/L [facility] ALT 17 6 - 29 U/L [facility] Comment: Test Performed at: [facility] [address] [place] [address] Sy Mckeon MD Blood 03/29/2025 9:48 AM CDT 03/30/2025 4:01 AM CDT us Selene Arredondo COOKIE MIXER HELPER CHEMISTRY ORDERABLES Fin al Result [facility] [phone] [facility] [address] [place] [address] * CT HEAD WO CONTRAST (03/14/2025 5:19 PM CDT) Anatomical Region Laterality Modality Head Computed Tomogra phy 03/14/2025 5:19 PM CDT Impressions 03/14/2025 5:31 PM CDT IMPRESSION: Please see below. Exam: CT HEAD WO CONTRAST Date/Time of Exam: 03/14/2025 5:19 PM REASON FOR EXAM: Mental status change, unknown cause. DIAGNOSIS: See Reason for Exam. Technique: CT of the head was performed without the administration of intravenous contrast. Findings: There is significant streak artifact through the skull base. There is no gross evidence of acute intracranial hemorrhage, mass effect, or infarct. There is mild volume loss with ex vacuo dilation of the ventricles. The ventricles are symmetric and midline structures are central. The bony calvarium is intact. The mastoid air cells and imaged paranasal sinuses are clear. IMPRESSION: No CT evidence of acute intracranial process. Narrative Procedure Note Rosas Novak MD - 03/14/2025 IMPRESSION: Please see below. Exam: CT HEAD WO CONTRAST Date/Time of Exam: 03/14/2025 5:19 PM REASON FOR EXAM: Mental status change, unknown cause. DIAGNOSIS: See Reason for Exam. Technique: CT of the head was performed without the administration of intravenous contrast. Findings: There is significant streak artifact through the skull base. There is no gross evidence of acute intracranial hemorrhage, mass effect, or infarct. There is mild volume loss with ex vacuo dilation of the ventricles. The ventricles are symmetric and midline structures are central. The bony calvarium is intact. The mastoid air cells and imaged paranasal sinuses are clear. IMPRESSION: No CT evidence of acute intracranial process. Roxanna Leblanc MD CT ORDERABLES Final Result * (ABNORMAL) URINALYSIS MICROSCOPY ONLY (03/14/2025 5:07 PM CDT) WBC UA 0-2 0 - 2 /hpf 03/14/2025 5:27 PM CDT [facility] RBC UA 0-2 0 - 2 /hpf 03/14/2025 5:27 PM CDT [facility] BACTERIA UA 1+(A) Negative /hpf 03/14/2025 5:27 PM CDT [facility] EPITHELIAL CELLS, URINE 0-5 0 - 5 /hpf 03/14/2025 5:27 PM CDT [facility] HYALINE CAST 0-2 None Seen, 0-2 /lpf 03/14/2025 5:27 PM CDT [facility] Urine URINE SPECIMEN OBTAINED BY CLEAN CATCH PROCEDURE / Unknown Collection / Unknown 03/14/2025 5:07 PM CDT 03/14/2025 5:15 PM CDT Roxanna Leblanc MD URINE ORDERABLES [id number] [address] [place] [id number] * (ABNORMAL) URINALYSIS WITH REFLEX MICROSCOPIC (03/14/2025 5:07 PM CDT) COLOR UA Yellow Pale to Dark Yellow 03/14/2025 5:27 PM CDT [facility] CLARITY UA Slightly Cloudy(A) Clear 03/14/2025 5:27 PM CDT [facility] SPECIFIC GRAVITY UA 1.025 1.003 - 1.035 03/14/2025 5:27 PM T [facility] PH UA 7.0 5.0 - 8.0 03/14/2025 5:27 PM CDT [facility] LEUKOCYTE ESTERASE UA Negative Negative 03/14/2025 5:27 PM CDT [facility] NITRITE UA Negative Negative 03/14/2025 5:27 PM T [facility] PROTEIN UA 1+(A) Negative 03/14/2025 5:[address] [facility] GLUCOSE UA Negative Negative 03/14/2025 5:[address] [facility] KETONES UA Negative Negative 03/14/2025 5:[address] [facility] UROBILINOGEN UA 0.2 <2.0 mg/dL 5:27 PM T [facility] BILIRUBIN UA Negative Negative 03/14/2025 5:27 PM T [facility] BLOOD UA Negative Negative 03/14/2025 5:[address] [facility] Urine URINE SPECIMEN OBTAINED BY CLEAN CATCH PROCEDURE / Unknown Collection / Unknown 03/14/2025 5:07 PM CDT 03/14/2025 5:15 PM CDT Roxanna Leblanc MD URINE ORDERABLES Final Result [facility] CLIA # [id number] [address] [place] [address] * MANUAL DIFFERENTIAL (03/14/2025 4:41 PM CDT) PLATELET EST. Consistent w Count 03/14/2025 5:02 PM CDT [facility] ANISOCYTOSIS 1+ /hpf 03/14/2025 5:02 PM CDT [facility] MACROCYTES 1+ /hpf 03/14/2025 5:02 PM CDT [facility] Blood BLOOD SPECIMEN / Unknown Collection / Unknown 03/14/2025 4:41 PM CDT 03/14/2025 4:51 PM CDT Narrative [facility] - 03/14/2025 5:02 PM CDT Smear reviewed. Findings consistent with automated results. us Roxanna Leblanc MD HEMATOLOGY ORDERABLES COM Final Result [facility] CLIA # [id number] [address] [place] [address] * (ABNORMAL) PTT (03/14/2025 4:41 PM CDT) PTT 20.3(L) 25.8 - 34.0 seconds 03/14/2025 5:09 PM CDT [facility] Blood BLOOD SPECIMEN / Unknown Collection / Unknown 03/14/2025 4:41 PM CDT 03/14/2025 4:59 PM CDT us Roxanna Leblanc MD HEMATOLOGY ORDERABLES [facility] Res [id number] [address] [place] [address] * SEDIMENTATION RATE (03/14/2025 4:41 PM CDT) ESR (SEDIMENTATION RATE) 12 0 - 20 mm/Hr 03/14/2025 5:05 PM CDT [facility] Blood BLOOD SPECIMEN / Unknown Collection / Unknown 03/14/2025 4:41 PM CDT 03/14/2025 4:51 PM CDT Narrative [facility] - 03/14/2025 5:05 PM CDT Tube Lot: #[id number] Exp Date: 08/08/2026 SR 0125-1 EXP. 05/13/25 SR 0125-2 EXP. 05/13/25 us Roxanna Leblanc MD HEMATOLOGY ORDERABLES Final Res ult Performing Organization Address City/[facility]/ZIP Co de Phone Number [facility] CLIA # [id number] [address] [place] [address] * PROTIME-INR (03/14/2025 4:41 PM CDT) PROTIME 13.3 11.9 - 14.6 Seconds 03/14/2025 5:09 PM CDT [facility] INR 1.0 0.9 - 1.1 03/14/2025 5:09 PM CDT [facility] Blood BLOOD SPECIMEN / Unknown Collection / Unknown 03/14/2025 4:41 PM CDT 03/14/2025 4:59 PM CDT Roxanna Leblanc MD HEMATOLOGY ORDERABLES Final Res ult Performing Organization Address [facility] Co de Phone Number [facility] CLIA # [id number] [address] [place] [address] * (ABNORMAL) BRAIN NATRIURETIC PEPTIDE, BNP OR PROBNP (03/14/2025 4:41 PM CDT) PROBNP, N TERMINAL 237(H) 0 - 125 pg/mL 03/14/2025 5:17 PM CDT [facility] Comment: INTERPRETIVE COMMENT based on diagnosis: Diagnostic NT pro-BNP cutoffs for Heart Failure in the absence of renal failure is suggested for the following ranges <75 years: <125 pg/mL >=75 years: <450 pg/mL Exclusionary rule out cut-point for Acute Decompensated Heart Failure(ADHF) All ages: <300 pg/mL Diagnostic NT pro-BNP cutoffs for Acute Decompensated Heart Failure(ADHF) in the absence of renal failure is suggested for the following ages <50 years: > 450 pg/mL 50-75 years: > 900 pg/mL >75 years: >1800 pg/mL Blood BLOOD SPECIMEN / Unknown Collection / Unknown 03/14/2025 4:41 PM CDT 03/14/2025 5:04 PM CDT Roxanna Leblacn MD CHEMISTRY ORDERABLES Final Resu lt Performing Organization Address City/[facility]/ZIP [facility] de [facility] Number [id number] [address] [place] [address] [id number] * MAGNESIUM LEVEL (03/14/2025 4:41 PM CDT) MAGNESIUM 2.2 1.6 - 2.6 mg/dL 03/14/2025 5:09 PM CDT [facility] Blood BLOOD SPECIMEN / Unknown Collection / Unknown 03/14/2025 4:41 PM CDT 03/14/2025 4:51 PM CDT Roxanna Leblanc MD CHEMISTRY ORDERABLES Final Resu lt Performing Organization Address [facility] Co de Phone Number [facility] CLIA # [id number] [address] [place] [address] * POTASSIUM LEVEL (03/09/2025 3:05 PM CDT) Pathologist [facility] POTASSIUM 3.6 3.5 - 5.1 mmol/L 03/09/2025 3:18 PM CDT [facility] Blood BLOOD SPECIMEN / Unknown Collection / Unknown 03/09/2025 3:05 PM CDT 03/09/2025 3:08 PM CDT Adriana Hogan COOKIE MIXER HELPER CHEMISTRY ORDERABLES Veronika l Result Performing Organization Address [facility]/ZIP Co de Phone Number [facility] CLIA # [id number] [address] [place] [address] * (ABNORMAL) COLON CANCER SCREEN, STOOL DNA (03/07/2025 5:30 PM CDT) COLOGUARD RESULT Positive( A) Negative [facility] Comment: The Cologuard (TM) test was performed on this specimen. POSITIVE TEST RESULT. A positive Cologuard result should be followed with a colonoscopy or visual examination of the colon. The normal value (reference range) for this assay is negative. TEST DESCRIPTION: Composite algorithmic analysis of stool DNA-biomarkers with hemoglobin immunoassay. Quantitative values of individual biomarkers are not reportable and are not associated with individual biomarker result reference ranges. Cologuard is intended for colorectal cancer screening of adults of either sex, 45 years or older, who are at average-risk for colorectal cancer (CRC). Cologuard has been approved for use by the U.S. FDA. The performance of Cologuard was established in a cross sectional study of average-risk adults aged 50-84. Cologuard performance in patients ages 45 to 49 years was estimated by sub-group analysis of near-age groups. Colonoscopies performed for a positive result may find as the most clinically significant lesion: colorectal cancer [4.0%], advanced adenoma (including sessile serrated polyps greater than or equal to 1cm diameter) [20%] or non- advanced adenoma [31%]; or no colorectal neoplasia [45%]. These estimates are derived from a prospective cross-sectional screening study of 10,000 individuals at average risk for colorectal cancer who were screened with both Cologuard and colonoscopy. (Jacquelyn Wei. et al, N Engl J Med 2014;370(14):9828-2029.) Cologuard may produce a false negative or false positive result (no colorectal cancer or precancerous polyp present at colonoscopy follow up). A negative Cologuard test result does not guarantee the absence of CRC or advanced adenoma (pre-cancer). The current Cologuard screening interval is every 3 years. ([place] Cancer Society and U.S. Multi-Society Task Force). Cologuard performance data in a 10,000 patient pivotal study using colonoscopy as the reference method can be accessed at the following location: [email or web address].[email or web address]/results. Additional description of the Cologuard test process, warnings and precautions can be found at www.ClearDATArd.com. Stool STOOL SPECIMEN / Unknown 03/07/2025 5:30 PM CDT 03/10/2025 3:06 PM CDT Selene Arredondo COOKIE MIXER HELPER BODY FLUIDS AND STOOLS F inal Result [facility] IA # [id number] [address] , [address] [place] [address] * HEMOGLOBIN A1C (02/20/2025 9:35 AM CDT) HEMOGLOBIN A1C 5.1 <5.7 % [facility] Comment: For the purpose of screening for the presence of diabetes: <5.7% Consistent with the absence of diabetes 5.7-6.4% Consistent with increased risk for diabetes (prediabetes) > or =6.5% Consistent with diabetes This assay result is consistent with a decreased risk of diabetes. Currently, no consensus exists regarding use of hemoglobin A1c for diagnosis of diabetes in children. According to [place] Diabetes Association (ADA) guidelines, hemoglobin A1c <7.0% represents optimal control in non- diabetic patients. Different metrics may apply to specific patient populations. Standards of Medical Care in Diabetes(ADA). ESTIMATED AVERAGE GLUCOSE (MG/DL) 100 mg/dL [facility] ESTIMATED AVERAGE GLUCOSE (MMOL/L) 5.5 mmol/L [facility] Comment: Test Performed at: [facility] [id number] [place] [address] Sy Mckeon MD Blood 02/20/2025 9:35 AM CDT 02/21/2025 3:36 AM CDT us Selene Arredondo COOKIE MIXER HELPER CHEMISTRY ORDERABLES Fin al Result [facility] [phone] [facility] [address] [place] [address] from Last 3 Months Insurance MEDICAID [facility] DUAL COMPLETE HMO DSNP [facility] [id number] Advance Directives For more information, please contact: [phone] * Full Code (Latest Code Status on File) Date Activated Date Inactivated Comments 01/24/2022 7:21 PM 01/30/2022 4:09 PM
--- OUTSIDE RECORDS SUMMARY | 2025-05-06 10:48 | XMS_ITS | Patient Health Record ---
Author Organization [facility] Address [address] [place] [address] Care Team Providers Care Low Heel Builder Name Role Phone Tang Diallona Primary Care Provider Allergies Allergen (clinical drug ingredient) Drug/Non Drug Allergy documented on EMR Reaction Allergy Type Onset Date Status cinnamon bark Cinnamon Unknown Drug Allergy Act rachael meloxicam Mobic Unknown Drug Allergy Active Penicillin Unknown Drug Allergy Active Reason For Referral No Information Medications Medication SIG (Take, Route, Frequency, Duration) Notes Start Date End Date Status Gabapentin Active Flonase Active Ferrous Sulfate Acti ve Esomeprazole Magnesium Active Breztri Aerosphere A ctive prednisoLONE Unknown Atorvastatin Calcium Active Zileuton Active Vitamin D2 Active Venlafaxine HCl ER A ctive Dupixent Active Combivent Active CeleXA Active busPIRone HCl Active Abilify 5 MG Tablet 1 tablet Orally Once a day Active Reclast Active Qvar Active ProAir Digihaler Act rachael Amlodipine & Diet Manage Prod Active Mucinex Active Losartan Potassium A ctive Ipratropium [place] Active predniSONE Active Potassium Chloride A ctive Ozempic Active Nortriptyline HCl Ac tive Social History Sex Assigned At : Social History Observation Description Sex Assigned At Female Plan Of Treatment No Information Insurance Providers Payer Name Payer Address Payer Phone Subscriber Number Group Number Insured Name Patient Relationship to Insured Coverage Start Date Coverage End Date [place] [employer] Dual Advantage [address] [place] [address] [id number] Xenia Arredondo Self - patient is the insured Medicaid Dental [address] [place] [address] [phone] [id number] Arnulfo Xenia Self - patient is the insured Medical (General) History Medical History History ICD Code vocal chord disorder bruise easily diabetes lung cancer arthritis fainting/ dizziness high blood pressure
--- OUTSIDE RECORDS SUMMARY | 2025-05-06 10:48 | XMS_ITS | Encounter Summary ---
Author Organization [facility] Address [address] [place] [address] Care Team Providers Care Sec Accountant Name Role Phone Emmanuel Tello DO Primary Care Provider [phone] Encounter Details Date Type Department Care Team (Latest Contact Info) Description 10/23/2003 Outpatient Historical [facility] INFECTION CONTROL NURSE, Family Medicine and Maternal- Medicine 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
--- OUTSIDE RECORDS SUMMARY | 2025-05-06 10:48 | XMS_ITS | Encounter Summary ---
Author Organization [facility] Address [address] [place] [address] Care Team Providers Care Network Systems Administrator Name Role Phone Emmanuel Tello DO Primary Care Provider [phone] Encounter Details Date Type Department Care Team (Latest Contact Info) Description 12/24/2004 Outpatient Historical [address] [id number] [place] [address] [place] [id number] BACKACHE NOS (Primary Dx) Social History Tobacco Use Types Packs/Day Years Used Date Smoking Tobacco: Never Assessed Comments Unknown Sex and Gender Information Value Date Recorded Sex Assigned at Not on file 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
--- OUTSIDE RECORDS SUMMARY | 2025-05-06 10:48 | XMS_ITS | Encounter Summary ---
Author Organization [facility] Address [address] [place] [address] Care Team Providers Care Pattern Marker Name Role Phone Emmanuel Tello DO Primary Care Provider [phone] Encounter Details Date Type Department Care Team (Latest Contact Info) Description 11/20/2003 Outpatient Historical [facility] MARINE STRUCTURAL DESIGNER, Family Medicine and Maternal- Medicine 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
--- OUTSIDE RECORDS SUMMARY | 2025-05-06 10:48 | XMS_ITS | Encounter Summary ---
Author Organization [facility] Address [address] [place] [address] Care Team Providers Care Environmental Engineering Professor Name Role Phone Emmanuel Tello DO Primary Care Provider [phone] Encounter Details Date Type Department Care Team (Latest Contact Info) Description 08/18/2003 Outpatient Historical [facility] ARMATURE WINDER AUTOMOTIVE, Family Medicine and Maternal- Medicine 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
[2025-05-06 11:00] VITALS: BP 109/70; O2SAT 96
--- NOTE | 2025-05-06 11:08 | XRR_ITS ---
PROCEDURE INFORMATION: Exam: XR Chest Exam date and time: 05/06/2025 11:31 AM Age: 44 years old Clinical indication: Other: Syncope TECHNIQUE: Imaging protocol: Radiologic exam of the chest. Views: 1 view. COMPARISON: MR shoulder RT wo con* [id number] 10/05/2024 11:18 AM FINDINGS: Lungs: Mild linear atelectasis at the right lung base. Pleural spaces: Unremarkable. No pleural effusion. No pneumothorax. Heart/Mediastinum: Unremarkable. No cardiomegaly. Bones/joints: Unremarkable. XR/XR chest 1V portable [id number] IMPRESSION: Mild linear atelectasis at the right base.
--- NOTE | 2025-05-06 11:10 | ECG_ITS ---
[facility]25[facility]06 Pat Name: Xenia Arredondo Department: Room: Gender: Female Burn Crew Member: : 1980 Requested By: Subhash Calle Order Number: [id number] Bishop MD: Manny Martin M.D. Measurements Intervals [place] Rate: 65 P: 9 CA: 162 QRS: -49 QRSD: 128 T: 18 QT: 431 QTc: 451 Interpretive Statements SINUS RHYTHM POSSIBLE RIGHT VENTRICULAR CONDUCTION DELAY [RSR (QR) IN V1/V2] LEFT ANTERIOR FASCICULAR BLOCK [QRS AXIS <= -45, QR IN I, RS IN II] POSSIBLE ANTERIOR MYOCARDIAL INFARCTION , OF INDETERMINATE AGE [30 ms Q WAVE IN V3/V4, OR R < 0.2 mV IN V4] No previous ECG available for comparison Electronically Signed On 05-11-2025 09:16:00 CDT by Manny Martin M.D. [email or web address]
--- NOTE | 2025-05-06 11:10 | W.ED.DIZZY ---
HPI - Dizziness General: Chief Complaint: Dizziness Stated Complaint: near syncope Time Seen by Provider: 05/06/25 10:43 Source: patient Mode of arrival: EMS Limitations: no limitations History of Present Illness: HPI Narrative: This patient was transported from local establishment via EMS. She apparently had a near syncopal episode. Patient states she awoke feeling in her normal state of health and then was out with friends shopping and felt like she had palpitations and lightheadedness and weakness. She did not fall or injure herself. EMS was notified and evaluated her and she had a another episode of near syncope when they were attempting to ambulate her. She states she has been having these episodes for some time and her manager telemarketing has recently discontinued her antihypertensive medications. She still continues to take a host of other medications including daily prednisone that she has been on since 2013 for chronic asthma. She has been evaluated by cardiology in the past including ambulatory monitoring, stress testing, echocardiography that she reports were all normal. She denies any episodes of chest pain or shortness of breath this morning with these episodes. She states she did not have any associated headache focal weakness difficulty with speech etc. She states everything seemed close then and start becoming them. This is similar to episode she has had in the past. She has seen endocrinology once at this facility recently who are attempting to taper her prednisone down. Never had tilt table testing etc. She does not take any supplemental steroids of other kinds. She uses a Mirena ring for contraception. She has not been recently ill with nausea vomiting diarrhea. She states she woke normal time and ate and drank normally this morning prior to going shopping Associated symptoms: Reports palpitations; Denies chest pain, chills, headache(s), nausea, nasal congestion or vomiting Associated neuro symptoms: Deny numbness in extremities Related Data Home Medications ?Medication ?Instructions ?Recorded ?Confirmed albuterol sulfate 90 mcg/actuation 2 inh inhalation .PRN 02/20/25 05/03/25 breath activated powder inhaler,sensor (Proair Digihaler) aripiprazole 5 mg tablet 5 mg PO DAILY 02/20/25 05/03/25 atorvastatin 20 mg tablet (Lipitor) 20 mg PO DAILY 02/20/25 05/03/25 beclomethasone dipropionate 80 2 inh inhalation Q12H 02/20/25 05/03/25 mcg/actuation HFA breath activated aerosol (Qvar RediHaler) biotin 5 mg capsule 5 mg PO DAILY 02/20/25 05/03/25 budesonide 160 mcg-glycopyr 9 2 inh inhalation BID 02/20/25 05/03/25 mcg-formot 4.8 mcg/actuation HFA inhaler (Breztri Aerosphere) citalopram 40 mg tablet 40 mg PO DAILY 02/20/25 05/03/25 dupilumab 300 mg/2 mL subcutaneous mg SUBCUT 02/20/25 05/03/25 pen injector (Dupixent) esomeprazole magnesium 40 mg 40 mg PO DAILY 02/20/25 05/03/25 capsule,delayed release (Nexium) ferrous sulfate 325 mg (65 mg 325 mg PO DAILY 02/20/25 05/03/25 iron) tablet furosemide 40 mg tablet (Lasix) 40 mg PO DAILY 02/20/25 05/03/25 hydrochlorothiazide 25 mg tablet 25 mg PO DAILY 02/20/25 05/03/25 ipratropium 20 mcg-albuterol 100 2 puff inhalation .prn 02/20/25 05/03/25 mcg/actuation mist for inhalation (Combivent Respimat) levocetirizine 5 mg tablet (Xyzal) 5 mg PO DAILY 02/20/25 05/03/25 meloxicam 15 mg tablet 15 mg PO DAILY 02/20/25 05/03/25 multivitamin (Daily Multi-Vitamin 1 tab PO DAILY 02/20/25 05/03/25 tablet) nortriptyline 75 mg capsule 75 mg PO DAILY 02/20/25 05/03/25 pregabalin 100 mg capsule (Lyrica) 100 mg PO DAILY 02/20/25 05/03/25 sulfamethoxazole 800 1 tab PO BID 02/20/25 05/03/25 mg-trimethoprim 160 mg tablet tirzepatide 15 mg/0.5 mL mg SUBCUT 02/20/25 05/03/25 subcutaneous pen injector (Abdielro) venlafaxine 75 mg tablet 75 mg PO DAILY 02/20/25 05/03/25 zileuton 600 mg tablet,extended 2 tab PO Q12H 02/20/25 05/03/25 release 12hr mphase potassium chloride 20 mEq oral 40 meq PO BID 03/13/25 05/03/25 packet Previous Rx's ?Medication ?Instructions ?Recorded lidocaine 5 % topical patch 3 patch topical DAILY PRN back 03/06/25 pain #30 ea tizanidine 4 mg tablet 8 mg (2 x 4 mg) PO BID PRN muscle 04/13/25 spasticity #60 tabs topiramate 50 mg tablet 150 mg (3 x 50 mg) PO BID PRN 04/28/25 nerve pain #180 tabs prednisone 1 mg tablet 1 mg PO DAILY #90 tabs 05/01/25 meclizine 25 mg tablet 12.5 mg (1/2 x 25 mg) PO TID PRN 05/06/25 dizziness #20 tabs Allergies Allergy/AdvReac Type Severity Reaction Status Date / Time cinnamon Allergy Severe anaphylaxis Verified 05/03/25 15:49 dextrose 5 % in water (From Allergy rash Verified 05/03/25 15:49 Zyvox) linezolid (From Zyvox) Allergy rash Verified 05/03/25 15:49 meropenem Allergy rash Verified 05/03/25 15:49 Penicillins Allergy rash Verified 05/03/25 15:49 Review of Systems Const: Denies: fever(s) or chills Eyes: Denies: change in vision ENMT: Denies: throat pain, odynophagia, nasal discharge or nasal congestion Card: Reports: palpitations, lightheadedness and pre-syncope; Denies: chest pain Resp: Denies: dyspnea, productive cough or non-productive cough GI: Denies: abdominal pain, nausea, vomiting or diarrhea : Denies: flank pain, difficulty voiding, dysuria or urinary frequency Musc: Denies: neck pain, back pain, extremity pain or extremity swelling Skin/Breast: Denies: rash Neuro: Denies: headache(s), numbness in extremities, weakness in extremities, Slurred speech present or seizure-like activity Psych: Reports: anxiety Endo: Denies: polyuria or polydipsia PFSH ED PFSH: Medical History Type 2 diabetes mellitus Asthma Obesity (BMI 30-39.9) Depression Anxiety Hypocalcemia Iron deficiency GERD (gastroesophageal reflux disease) HTN (hypertension) Dizziness Neuropathy Social History Smoking and tobacco/nicotine status: former use of tobacco/nicotine Physical Exam Narrative: EXAM NARRATIVE: She is alert cooperative appears to be in no acute distress. She makes good eye contact and her speech is goal-directed. Const: COMMON NORMALS: no acute distress GENERAL APPEARANCE: cooperative and comfortable NUTRITIONAL APPEARANCE: obese HENMT: COMMON NORMALS: atraumatic, Normal nasal mucous membranes and turbinates present, moist oral mucous membranes and oropharynx normal HEAD & SCALP: atraumatic FACE & SINUS: face symmetric NOSE: Normal nasal mucous membranes and turbinates present Eye: COMMON NORMALS: Equal, round and reactive pupils present, EOMs intact bilaterally and conjunctivae normal CONJUNCTIVA: Yes conjunctivae normal PUPIL: Yes Equal, round and reactive pupils present OTHER: No nystagmus Neck/C-Spine: COMMON NORMALS: supple, no JVD and No carotid bruits Resp: COMMON NORMALS: normal respiratory effort, No use of accessory muscles and clear to auscultation bilaterally AUSCULTATION: clear to auscultation bilaterally Cardio: COMMON NORMALS: no JVD, regular rate, regular rhythm, No murmurs present (Cardio) and Peripheral pulses 2+ throughout RATE: regular rate RHYTHM: regular rhythm PERIPHERAL PULSES: Peripheral pulses 2+ throughout GI: COMMON NORMALS: Normal to inspection, nondistended, normoactive bowel sounds present INSPECTION: Yes central obesity Back/Pelvis: COMMON NORMALS: thoracic and lumbar spine normal to inspection, no thoracic nor lumbar tenderness and thoraco-lumbar ROM normal Extremity: COMMON NORMALS: normal to inspection, full ROM, capillary refill normal, no calf tenderness and no pedal edema Neuro: COMMON NORMALS: moves all extremities, no focal motor deficits and no sensory deficits noted CRANIAL NERVES: Yes CN normal except as noted COORDINATION/BALANCE: [id number] test normal SPEECH: speech normal GAIT: Yes Normal gait present COORDINATION: [id number] test normal Psych: COMMON NORMALS: mental status grossly normal Skin: COMMON NORMALS: no rashes or lesions noted and turgor normal GENERAL SKIN EXAM: no rashes or lesions noted and turgor normal Course Reevaluation(s): Reevaluation #1: Patient remained stable and drinking fluids. Initial troponin was over the URL so a 2-hour will be obtained. Time: 13:00 Reevaluation #2: Patient was reevaluated. She states that she is having vertiginous symptoms when she gets up and and uses a bedside commode. She states that the go away after short period of time at then they can return when she changes position. This appears to be a an additive symptom to that which she described earlier. She described earlier seem to be more focused on lightheadedness with positional changes but she has now teased out the the vertiginous symptoms. They are not associated with any other symptoms such as numbness weakness difficulty with speech headache etc. She has not had any recent URIs, tinnitus or other associated symptoms. Repeat evaluation was conducted. She has no nystagmus at rest. She has no focal weakness, no discoordination, no gait disturbance. Arron-Hallpike maneuver was performed with no symptoms elicited with the head to the left however with the head to the right the symptoms were elicited and they continued for short period of time with returning back to normal position and then abated. There was no associated nystagmus visualized during the episode. I reviewed current findings with both patient and spouse. She certainly has what appears to be 2 simultaneous issues ongoing. She has what appears to be postural hypotension at times. We have not seen any evidence of arrhythmias etc. She is also had no delta troponin and no dynamic EKG changes during dinner be indicative of silent ischemia etc. This is likely related to her long-term adrenal gland suppression because of her prednisone and will be addressed with her corporate quality manager. She also has what appears to be a tubular syndrome likely be PPV on the right. Very unlikely to be a central nervous system etiology and I shared the low likelihood with both the patient and spouse and proposed symptomatic treatment but also reviewed other symptoms that would prompt immediate return to the emergency department for further evaluation. Time: 14:07 Vital Signs: Vital signs: Vital Signs Temperature 98.2 F 05/06/25 10:38 Pulse Rate 63 05/06/25 13:05 Respiratory Rate 16 05/06/25 13:05 Blood Pressure 122/80 05/06/25 13:05 Pulse Oximetry 97 05/06/25 13:05 Oxygen Delivery Me thod Room Air 05/06/25 10:44 MDM - Dizziness Medical Decision Making Patient presented as noted in the HPI. She is on chronic steroid use of certainly first thing that comes to mind would be orthostatic or hypotensive episodes due to adrenal suppression. Certainly we have to think about occult arrhythmia, anemia, electrolyte disturbance etc. Will go ahead and initiate a workup give IV fluids and reassess. Workup ensued and initial troponin was slightly over the URL without any dynamic or concerning EKG changes. A repeat troponin was essentially unchanged and a negative negative delta actually noted. Subsequent EKG showed no dynamic change or ischemic changes of concern. No evidence of arrhythmia on monitoring while in the emergency department. TSH electrolytes urinalysis chest x-ray etc. are also reassuring. On reevaluation the emergency department additional symptoms were elicited which suggest a BP PV or vestibular syndrome. Her clinical picture and nature of her findings do not suggest a central nervous system issue at this time. Again her postural hypotensive episodes appear to be related to her adrenal suppression most likely as we have not seen any evidence of arrhythmia and she is not on any antihypertensives. She does take some SSRI medications which may or may not have a effect on postural hypotension. Nonetheless at this time that needs to be continue to be evaluated by her corporate quality manager. We will initiate symptomatic treatment for vestibular syndrome and also reviewed return precautions that would necessitate further workup for potential central nervous system etiology. All questions were answered. Both she and spouse were appreciative of care. Lab Data I reviewed the patient's lab results. 05/06/25 11:31 05/06/25 11:31 Radiology Impressions Chest X-Ray 05/06/25 11:08 IMPRESSION: Mild linear atelectasis at the right base. Laboratory Results WBC 10.11 10^3/uL (3.29-11.43) 05/06/25 11:31 RBC 3.63 10^6/uL (3.85-5.65) L 05/06/25 11:31 Hgb 12.20 g/dL (11.27-16.99) 05/06/25 11:31 Hct 36.9 % (36-47) 05/06/25 11:31 MCV 101.7 fl (85-98) H 05/06/25 11:31 MCH 33.6 pg (27-33) H 05/06/25 11:31 MCHC 33.1 g/dL (30-55) 05/06/25 11:31 RDW 16.3 % (12.1-15.1) H 05/06/25 11:31 Plt Count 141 10^3/cmm (157-399) L 05/06/25 11:31 MPV 9.1 fL (7.4-10.4) 05/06/25 11:31 Neut % (Auto) 77.6 % 05/06/25 11:31 Lymph % (Auto) 13.1 % 05/06/25 11:31 Schuyler % (Auto) 7.9 % 05/06/25 11:31 Eos % (Auto) 0.1 % 05/06/25 11:31 Baso % (Auto) 0.2 % 05/06/25 11:31 Neut # (Auto) 7.85 10^3/uL (1.8-7.7) H 05/06/25 11:31 Lymph # (Auto) 1.3 10^3/uL (0.8-4.8) 05/06/25 11:31 Schuyler # (Auto) 0.8 10^3/uL (0.2-0.9) 05/06/25 11:31 Eos # (Auto) 0.0 10^3/uL (0.0-0.8) 05/06/25 11:31 Baso # (Auto) 0.0 10^3/uL (0.0-0.1) 05/06/25 11:31 Nucleated RBC % (auto) 0 % 05/06/25 11:31 Nucleated RBCs # 0.0 /100WBC 05/06/25 11:31 Sodium 138 mmol/L (136-145) 05/06/25 11:31 Potassium 3.9 mmol/L (3.5-5.1) 05/06/25 11:31 Chloride 101 mmol/L (98-107) 05/06/25 11:31 Carbon Dioxide 26 mmol/L (22-29) 05/06/25 11:31 Anion Gap 14.9 (5-19) 05/06/25 11:31 BUN 14 mg/dL (6-20) 05/06/25 11:31 Creatinine 1.0 mg/dL (0.5-0.9) H 05/06/25 11:31 GFR Calculation 60.0 mL/min (90-130) L 05/06/25 11:31 Glucose 91 mg/dL (65-115) 05/06/25 11:31 Calculated Osmolality 286 mOsm/kg (285-295) 05/06/25 11:31 Calcium 8.9 mg/dL (8.5-10.5) 05/06/25 11:31 Magnesium 2.1 mg/dL (1.7-2.3) 05/06/25 11:31 Total Bilirubin 0.4 mg/dL (0.15-1.2) 05/06/25 11:31 AST 18 U/L (0-32) 05/06/25 11:31 ALT 20 U/L (0-33) 05/06/25 11:31 Alkaline Phosphatase 68 U/L (35-105) 05/06/25 11:31 Troponin T Baseline 21 ng/L (0-10) H 05/06/25 11:31 Troponin T 120 Minute 20.47 ng/L (0-10) H 05/06/25 13:06 Delta Troponin T -0.53 ABS# (0-10) L 05/06/25 13:06 Total Protein 5.8 g/dL (6.6-8.7) L 05/06/25 11:31 Albumin 3.8 g/dL (3.5-5.2) 05/06/25 11:31 Globulin 2.0 g/dL (1.3-4.6) 05/06/25 11:31 TSH 0.77 uIU/mL (0.27-4.20) 05/06/25 11:31 Urine Color Yellow (Yellow) 05/06/25 10:50 Urine Appearance Clear (CLEAR) 05/06/25 10:50 Urine pH 6.5 (5-7) 05/06/25 10:50 Ur Specific [place] 1.010 (1.005-1.030) 05/06/25 10:50 Urine Protein Negative (Negative) 05/06/25 10:50 Urine Glucose (UA) Negative (Normal) 05/06/25 10:50 Urine Ketones Negative (Negative) 05/06/25 10:50 Urine Blood Negative (Negative) 05/06/25 10:50 Urine Nitrate Negative (Negative) 05/06/25 10:50 Urine Bilirubin Negative (Negative) 05/06/25 10:50 Urine Urobilinogen 0.2 mg/dL (Negative) 05/06/25 10:50 Ur Leukocyte Esterase Negative (Negative) 05/06/25 10:50 Urine RBC 0-2 /hpf (0-2) 05/06/25 10:50 Urine WBC 0-5 /hpf (0-5) 05/06/25 10:50 Ur Squamous Epith Cells 0-5 /hpf (0-5) 05/06/25 10:50 Amorphous Sediment Not Reportable 05/06/25 10:50 Urine Bacteria 1+ /hpf (NONE) H 05/06/25 10:50 Hyaline Casts 1.21 /lpf 05/06/25 10:50 All radiology interpretation(s) finalized by discharge EKG Data EKG 1: I personally reviewed and interpreted this EKG as follows: Interpretation: Contemporaneous review of resting EKG reveals a ventricular of 65 bpm. Normal sinus rhythm. IL intervals normal, QRS duration is normal, corrected QT intervals normal. She has a leftward axis suggestive of possible left anterior Heema block. No acute ST-T wave changes noted at this time. She has baseline interference in precordial lead V3. EKG 2: I personally reviewed and interpreted this EKG as follows: Interpretation: Second EKG this visit contemporaneously reviewed reveals a ventricular rate of 65 bpm with normal IL interval QRS duration and QT interval. Abnormal axis suggests limb lead reversal no acute ST-T wave changes noted at this time. No dynamic changes from prior tracing other than the limb lead reversal. Discharge Plan Discharge Patient Disposition: Home Clinical Impression: Postural hypotension, Acute vestibular syndrome Condition: Stable Prescriptions: New meclizine 25 mg tablet 12.5 mg PO TID PRN (Reason: dizziness) Qty: 20 0RF No Action tizanidine 4 mg tablet 8 mg PO BID PRN (Reason: muscle spasticity) Qty: 60 0RF furosemide [Lasix] 40 mg tablet 40 mg PO DAILY Mounjaro 15 mg/0.5 mL pen injector SUBCUT Qvar RediHaler 80 mcg/actuation HFA aerosol breath activated 2 inh inhalation Q12H Breztri Aerosphere 160-9-4.8 mcg/actuation HFA aerosol inhaler 2 inh inhalation BID Proair Digihaler 90 mcg/actuation aero powdr breath act w/sensor 2 inh inhalation .PRN Combivent Respimat 20-100 mcg/actuation mist 2 puff inhalation .prn Dupixent Pen 300 mg/2 mL pen injector SUBCUT meloxicam 15 mg tablet 15 mg PO DAILY biotin 5 mg capsule 5 mg PO DAILY multivitamin [Daily Multi-Vitamin] Tablet 1 tab PO DAILY sulfamethoxazole-trimethoprim 800-160 mg tablet 1 tab PO BID ferrous sulfate 325 mg (65 mg iron) tablet 325 mg PO DAILY hydrochlorothiazide 25 mg tablet 25 mg PO DAILY levocetirizine [Xyzal] 5 mg tablet 5 mg PO DAILY venlafaxine 75 mg tablet 75 mg PO DAILY Rx Instructions: 3 tabs daily esomeprazole magnesium [Nexium] 40 mg capsule,delayed release(DR/EC) 40 mg PO DAILY zileuton 600 mg tablet, ER multiphase 12 hr 2 tab PO Q12H atorvastatin [Lipitor] 20 mg tablet 20 mg PO DAILY nortriptyline 75 mg capsule 75 mg PO DAILY Rx Instructions: 2 tabs daily aripiprazole 5 mg tablet 5 mg PO DAILY pregabalin [Lyrica] 100 mg capsule 100 mg PO DAILY citalopram 40 mg tablet 40 mg PO DAILY potassium chloride 20 mEq packet 40 meq PO BID prednisone 1 mg tablet 1 mg PO DAILY Qty: 90 0RF lidocaine 5 % adhesive patch,medicated 3 patch topical DAILY PRN (Reason: back pain) Qty: 30 6RF Rx Instructions: leave on most painful area for up to 12 hrs topiramate 50 mg tablet 150 mg PO BID PRN (Reason: nerve pain) Qty: 180 3RF Discharge Orders: Discharge ED (Routine); Ordered 05/06/25 Ordered By: Subhash Calle Referrals: JULIAN Abdullahi, TOOL GRINDER OPERATOR [Primary Care Provider, [facility]] Discharge Diet: Usual diet Discharge Activity: Increase activity as tolerated Patient Instructions: Opioid Safety, Pain Management, Patient Portal & Jolene Instructions Activity Restrictions/Additional Instructions: As we discussed you have an inflammation of your balance in your inner ear on the right that is causing your intermittent vertigo symptoms. We have provided a medication to help control those symptoms. You should be mindful that quick changes in position etc. can make the symptoms temporarily worse for a minute or 2. You also have episodes of low blood pressure which are likely related to your chronic prednisone use in addition your other mental health medications can make this worse as well. You should review your treatment with your corporate quality manager for further changes in therapy. If it anytime you develop any new or worsening symptoms particularly regarding weakness, headache, difficulty with speech or other symptoms that would suggest another condition other than just a middle ear inflammation and return to the nearest emergency department immediately. Also if you develop chest pain shortness of breath palpitations etc. you should seek immediate care. Print Language: Khmer Coding Level of Care Code ED Accounting Manager Cpa for Maia Augustine
[2025-05-06 11:26] LABS: Bilirubin Urine Negative (Negative); Blood Urine Negative (Negative); Glucose Urine UA Negative (Normal); Ketones Urine Negative (Negative); Leukocyte Esterase Urine Negative (Negative); Nitrate Urine Negative (Negative); Protein Urine Negative (Negative); Urine Appearance Clear (CLEAR); Urine Color Yellow (Yellow); Urobilinogen Urine 0.2 mg/dL (Negative); pH Urine 6.5 (5-7)
[2025-05-06] MEDS: lactated ringers 1,000 ML 999 ML IV (11:29)
[2025-05-06 11:31] LABS: Add Urine Microscopic? YES; Bacteria Urine 1+ /hpf; Hyaline Casts Urine 1.21 /lpf; RBC Urine 0-2 /hpf (0-2); Squamous Epithelial Cell Urine 0-5 /hpf (0-5); WBC Urine 0-5 /hpf (0-5)
[2025-05-06 11:36] LABS: Add Urine Culture? No
[2025-05-06 11:38] LABS: Basophils % 0.2 %; Eosinophils % 0.1 %; Hematocrit 36.9 % (36-47); Lymphocytes # 1.3 10^3/uL (0.8-4.8); Lymphocytes % 13.1 %; Mean Corpuscular HGB Conc 33.1 g/dL (30-55); Mean Corpuscular Hemoglobin 33.6 pg (27-33); Mean Corpuscular Volume 101.7 fl (85-98); Mean Platelet Volume 9.1 fL (7.4-10.4); Monocytes # 0.8 10^3/uL (0.2-0.9); Monocytes % 7.9 %; Neutrophils # 7.85 10^3/uL (1.8-7.7); Neutrophils % 77.6 %; Nucleated Red Blood Cells % 0 %; Platelet Count 141 10^3/cmm (157-399); Red Blood Count 3.63 10^6/uL (3.85-5.65); Red Cell Distribution Width 16.3 % (12.1-15.1); White Blood Count 10.11 10^3/uL (3.29-11.43)
[2025-05-06 12:00] LABS: Troponin(5th) Baseline 21 ng/L (0-10)
[2025-05-06 12:10] LABS: Alanine Aminotransferase 20 U/L (0-33); Albumin Level 3.8 g/dL (3.5-5.2); Alkaline Phosphatase 68 U/L (35-105); Anion Gap 14.9 (5-19); Aspartate Amino Transferase 18 U/L (0-32); Blood Urea Nitrogen 14 mg/dL (6-20); Calcium 8.9 mg/dL (8.5-10.5); Carbon Dioxide 26 mmol/L (22-29); Chloride 101 mmol/L (98-107); Glucose 91 mg/dL (65-115); Magnesium 2.1 mg/dL (1.7-2.3); Osmolality Calculated 286 mOsm/kg (285-295); Potassium 3.9 mmol/L (3.5-5.1); Sodium 138 mmol/L (136-145); Thyroid Stimulating Hormone 0.77 uIU/mL (0.27-4.20); Total Bilirubin 0.4 mg/dL (0.15-1.2); Total Protein 5.8 g/dL (6.6-8.7)
[2025-05-06 12:32] VITALS: BP 126/76; PULSE 63; RESP 18; O2SAT 98
[2025-05-06 13:05] VITALS: BP 122/80; PULSE 63; RESP 16; O2SAT 97
--- NOTE | 2025-05-06 13:10 | ECG_ITS ---
[facility] Test Date: 2025-05-06 Pat Name: Xenia Arredondo Department: Room: Gender: Female Coloring Room Man: : 1980 Requested By: Subhash Calle Order Number: [id number] Edna MD: Manny Martin M.D. Measurements Intervals [place] Rate: 65 P: 170 MT: 165 QRS: 225 QRSD: 125 T: 174 QT: 437 QTc: 457 Interpretive Statements SINUS RHYTHM ARM LEADS REVERSED [INVERTED P AND QRS IN I] Compared to ECG 05/06/2025 11:25:04 Left anterior fascicular block no longer present Myocardial infarct finding no longer present Electronically Signed On 05-11-2025 09:38:25 CDT by Manny Martin M.D. [email or web address]
[2025-05-06 13:38] LABS: Troponin 5 2HR 20.47 ng/L (0-10)
[2025-05-06 13:48] LABS: Troponin 5 2HR Delta -0.53 ABS# (0-10)
[2025-05-06] MEDS: meclizine 25 mg tablet PO (14:19)
[2025-05-06 14:27] VITALS: BP 142/96; PULSE 112; RESP 18; O2SAT 97
== END 2025-05-06 14:27 | disposition home or self-care (01) ==
PROVIDERS: Emergency Provider Emergency Medicine; PCP Nurse Practitioner Family
DX: I95.1 Orthostatic hypotension (principal); H81.90 Unspecified disorder of vestibular function, unspecified ear; E11.40 Type 2 diabetes mellitus with diabetic neuropathy, unspecified; I10 Essential (primary) hypertension
CPT/HCPCS: 71045; 80053; 81001; 83735; 84443; 84484; 85025; 93005; 99285; J7120; J8597

== ENCOUNTER → 2025-05-30 13:13 | Outpatient (BNVA) | payer MEDICARE, MEDICAID, SELFPAY | PROVIDERS: PCP Nurse Practitioner Family; Visit Provider Nurse Practitioner Family | DX: M79.18 Myalgia, other site (principal); M54.9 Dorsalgia, unspecified; M54.42 Lumbago with sciatica, left side; M54.41 Lumbago with sciatica, right side; G89.29 Other chronic pain; M54.2 Cervicalgia | CPT/HCPCS: 20553; 99214; J1010; J3490 ==

== ENCOUNTER 2025-06-08 13:04 | Oncology outpatient (recurring) (ONCR) | payer MEDICARE, MEDICAID, SELFPAY ==
[2025-06-08 13:28] LABS: Hematocrit 35.8 % (36-47); Hemoglobin 11.50 g/dL (11.27-16.99); Mean Corpuscular HGB Conc 32.1 g/dL (30-55); Mean Corpuscular Hemoglobin 32.3 pg (27-33); Mean Corpuscular Volume 100.6 fl (85-98); Nucleated Red Blood Cells % 0 %; Platelet Count 145 10^3/cmm (157-399); Red Blood Count 3.56 10^6/uL (3.85-5.65); White Blood Count 9.98 10^3/uL (3.29-11.43)
[2025-06-08 13:39] LABS: INR 1.03 (0.8-1.2); Partial Thromboplastin Time 25.0 SECONDS (23.9-36.7); Prothrombin Time 14.30 SECONDS (12.1-14.9)
[2025-06-08 13:46] LABS: Alanine Aminotransferase 16 U/L (0-33); Albumin Level 3.5 g/dL (3.5-5.2); Alkaline Phosphatase 72 U/L (35-105); Anion Gap 12.1 (5-19); Aspartate Amino Transferase 20 U/L (0-32); Blood Urea Nitrogen 24 mg/dL (6-20); Calcium 8.9 mg/dL (8.5-10.5); Carbon Dioxide 28 mmol/L (22-29); Chloride 103 mmol/L (98-107); Creatinine Clr Calc Pharmacy 139.0311; Globulin 2.5 g/dL (1.3-4.6); Glucose 72 mg/dL (65-115); Osmolality Calculated 291 mOsm/kg (285-295); Potassium 4.1 mmol/L (3.5-5.1); Sodium 139 mmol/L (136-145); Total Protein 6.0 g/dL (6.6-8.7)
[2025-06-08 14:02] LABS: Vitamin B12 520 pg/mL (232-1245)
[2025-06-13 11:40] LABS: BCR ABL1 (IS) 0.000 (0.000); BCR ABL1/ALB1 % 0.000 (0.000); P190 BCR ALB1 NOT DETECTED; P190 BCR ALB1 Yes Test Yes; P210 BCR ALB1 NOT DETECTED; P210 BCR ALB1 Yes Test Yes; Source blood
== END 2025-06-08 23:59 | disposition home or self-care (01) ==
PROVIDERS: PCP Nurse Practitioner Family; Visit Provider Internal Medicine
DX: D72.829 Elevated white blood cell count, unspecified (principal); D75.89 Other specified diseases of blood and blood-forming organs; Z87.891 Personal history of nicotine dependence; Z79.52 Long term (current) use of systemic steroids; F10.90 Alcohol use, unspecified, uncomplicated; J45.50 Severe persistent asthma, uncomplicated; R91.1 Solitary pulmonary nodule; E24.2 Drug-induced Cushing's syndrome; R58 Hemorrhage, not elsewhere classified
CPT/HCPCS: 36415; 80053; 81206; 81207; 82607; 82746; 83615; 85025; 85610; 85651; 85730; 99213

== ENCOUNTER 2025-07-19 12:31 | Oncology outpatient (recurring) (ONCR) | payer MEDICAID, OTHER, SELFPAY ==
[2025-07-19 12:55] LABS: Hematocrit 36.5 % (36-47); Hemoglobin 11.70 g/dL (11.27-16.99); Mean Corpuscular HGB Conc 32.1 g/dL (30-55); Mean Corpuscular Hemoglobin 31.5 pg (27-33); Mean Corpuscular Volume 98.4 fl (85-98); Nucleated Red Blood Cells % 0 %; Platelet Count 141 10^3/cmm (157-399); Red Blood Count 3.71 10^6/uL (3.85-5.65); White Blood Count 10.75 10^3/uL (3.29-11.43)
[2025-07-19 13:11] LABS: Alanine Aminotransferase 16 U/L (0-33); Albumin Level 3.8 g/dL (3.5-5.2); Alkaline Phosphatase 75 U/L (35-105); Anion Gap 14.9 (5-19); Aspartate Amino Transferase 16 U/L (0-32); Blood Urea Nitrogen 18 mg/dL (6-20); Calcium 8.9 mg/dL (8.5-10.5); Carbon Dioxide 22 mmol/L (22-29); Chloride 106 mmol/L (98-107); Globulin 2.6 g/dL (1.3-4.6); Glucose 100 mg/dL (65-115); Osmolality Calculated 290 mOsm/kg (285-295); Potassium 3.9 mmol/L (3.5-5.1); Sodium 139 mmol/L (136-145); Total Protein 6.4 g/dL (6.6-8.7)
== END 2025-08-08 23:59 | disposition home or self-care (01) ==
PROVIDERS: Nurse Practitioner Family; PCP Nurse Practitioner Family; Visit Provider Nurse Practitioner
DX: D72.829 Elevated white blood cell count, unspecified (principal); D75.89 Other specified diseases of blood and blood-forming organs; Z79.52 Long term (current) use of systemic steroids; Z79.899 Other long term (current) drug therapy
CPT/HCPCS: 36415; 80053; 85025; 99213

== ENCOUNTER 2025-09-18 11:43 | Oncology outpatient (recurring) (ONCR) | payer OTHER, SELFPAY ==
[2025-09-18 12:00] LABS: Hematocrit 38.7 % (36-47); Hemoglobin 12.20 g/dL (11.27-16.99); Mean Corpuscular HGB Conc 31.5 g/dL (30-55); Mean Corpuscular Hemoglobin 30.6 pg (27-33); Mean Corpuscular Volume 97.0 fl (85-98); Nucleated Red Blood Cells % 0 %; Platelet Count 153 10^3/cmm (157-399); Red Blood Count 3.99 10^6/uL (3.85-5.65); White Blood Count 10.01 10^3/uL (3.29-11.43)
[2025-09-18 12:18] LABS: Alanine Aminotransferase 10 U/L (0-33); Albumin Level 3.8 g/dL (3.5-5.2); Alkaline Phosphatase 88 U/L (35-105); Anion Gap 14.5 (5-19); Aspartate Amino Transferase 15 U/L (0-32); Blood Urea Nitrogen 18 mg/dL (6-20); Calcium 8.9 mg/dL (8.5-10.5); Carbon Dioxide 24 mmol/L (22-29); Chloride 106 mmol/L (98-107); Globulin 3.0 g/dL (1.3-4.6); Glucose 84 mg/dL (65-115); Osmolality Calculated 291 mOsm/kg (285-295); Potassium 4.5 mmol/L (3.5-5.1); Sodium 140 mmol/L (136-145); Total Protein 6.8 g/dL (6.6-8.7)
== END 2025-10-08 23:59 | disposition home or self-care (01) ==
LOC: ONCMED 11:44
PROVIDERS: PCP Nurse Practitioner Family; Visit Provider Nurse Practitioner
DX: D72.829 Elevated white blood cell count, unspecified (principal); D75.89 Other specified diseases of blood and blood-forming organs; Z79.52 Long term (current) use of systemic steroids; Z79.899 Other long term (current) drug therapy
CPT/HCPCS: 36415; 80053; 85025; 99214